=== PATIENT | female | born 1950 | race Caucasian/White ===

== ENCOUNTER 2019-06-25 08:25 | Day surgery (SDC) | payer BC ==
[~2019-06-25] VITALS: Ht 160 cm; Wt 64.1 kg
[~2019-06-25 08:25] MED LIST: EST1T PO; FURO-150 PO; HYDR12.522 PO; OMEP-84 PO; SIMV5TAB58 PO
[2019-06-25 09:04] VITALS: BP 112/61
[2019-06-25] MEDS ORDERED: METO-467 PO (09:15)
[2019-06-25] MEDS ORDERED: AMLO2.5T2 PO (09:15)
[2019-06-25] MEDS ORDERED: GABA-530 PO (09:15)
[2019-06-25] MEDS ORDERED: CELE-193 PO (09:15)
[2019-06-25] MEDS ORDERED: LORA-835 PO (09:15)
[2019-06-25] MEDS ORDERED: DEXL60CA3 PO (09:15)
[2019-06-25] MEDS ORDERED: ATOR20TA PO (09:15)
[2019-06-25] MEDS ORDERED: LOSA1TAB36 PO (09:15)
[2019-06-25] MEDS ORDERED: POTA99TA21 PO (09:15)
[2019-06-25 10:05] VITALS: BP 110/59
== END 2019-06-25 10:45 | disposition home or self-care (01) ==
LOC: SSTAY O 08:25
PROVIDERS: ATTEND Radiology Diagnostic Radiology
DX: S70.11XD Contusion of right thigh, subsequent encounter (principal); R60.1 Generalized edema; W22.8XXD Striking against or struck by other objects, subsequent encounter; Y92.89 Other specified places as the place of occurrence of the external cause
CPT/HCPCS: 10030